=== PATIENT | male | born 1995 | race American Indian/Alaskan Native ===

== ENCOUNTER 2020-08-16 03:02 | Emergency (ER) | payer SELFPAY ==
[2020-08-16] MEDS ORDERED: methylPREDNISolone Sod Succinate 125 MG/2 ML INJ IM ONE (03:23)
[2020-08-16] MEDS ORDERED: IPRATROPIUM/ALBUTEROL SULFATE 3 ML AMPUL.NEB IH ONE (03:23)
--- NOTE | 2020-08-16 03:47 | Emergency Department Report ---
ED General Adult HPI - General Chief complaint: Chest Pain Stated complaint: CHEST PAIN Time Seen by Provider: 08/16/20 03:06 Source: patient Mode of arrival: Ambulatory Limitations: No Limitations - History of Present Illness Initial comments: 25 yo AA M pt presents with complaints of sudden onset of left sided chest tightness x yesterday. Pt states the chest tightness started suddenly when he was at his PCP's office and was informed he that he may have hypertension. PMHx of Asthma per pt. He also states he has had a mild cough, but denies any hem optysis, leg pain/swelling, hx of DVT/PE/cancer, or recent long travel/surgeries. No abdominal pain, N/V/D or fever per pt. He states he has not had an asthma exacerabtion since he was very young and denies any hx of anxiety/panic attacks. Pt denies there being pain in the chest and states it just feels tight; a tightness occurs with deep inhalation and movement of the chest wall per patient only. No prior heart history or family history of heart disease per patient. - Related Data Previous Rx's Medication Instructions Recorded Last Taken Type Naproxen [Naprosyn TAB] 500 mg PO BID PRN #14 tablet 08/16/20 Unknown Rx Allergies Allergy/AdvReac Type Severity Reaction Status Date / Time No Known Allergies Allergy Unverified 08/16/20 03:22 ED Review of Systems ROS: Stated complaint: CHEST PAIN Other details as noted in HPI Constitutional: denies: chills, diaphoresis, fever, malaise, weakness ENT: denies: throat pain Respiratory: cough. denies: shortness of breath, SOB with exertion Cardiovascular: as per HPI. denies: edema, syncope Gastrointestinal: denies: abdominal pain, nausea, vomiting, diarrhea Musculoskeletal: denies: back pain Neurological: denies: headache, weakness ED Past Medical Hx - Past Medical History Previous Medical History?: Yes Hx Hypertension: Yes Hx Asthma: Yes - Surgical History Past Surgical History?: No - Social History Smoking Status: Never Smoker Substance Use Type: None - Medications Home Medications: Home Medications Medication Instructions Recorded Confirmed Last Taken Type Naproxen [Naprosyn TAB] 500 mg PO BID PRN #14 tablet 08/16/20 Unknown Rx ED Physical Exam - General Limitations: No Limitations General appearance: alert, in no apparent distress - Head Head exam: Present: atraumatic, normocephalic - Eye Eye exam: Present: normal appearance. Absent: scleral icterus - ENT ENT exam: Present: normal exam - Neck Neck exam: Present: normal inspection - Respiratory Respiratory exam: Present: chest wall tenderness (left parasternal ). Absent: respiratory distress, wheezes, rales, rhonchi, accessory muscle use - Cardiovascular Cardiovascular Exam: Present: regular rate, normal rhythm - GI/Abdominal GI/Abdominal exam: Present: soft. Absent: tenderness - Extremities Exam Extremities exam: Absent: calf tenderness (No swelling or tenderness noted to legs bilaterally) - Neurological Exam Neurological exam: Present: alert, oriented X3, normal gait - Psychiatric Psychiatric exam: Present: normal affect, normal mood - Skin Skin exam: Present: warm, dry, intact, normal color. Absent: rash ED Course Vital Signs 08/16/20 08/16/20 08/16/20 03:19 03:22 03:39 Temperature 98.8 F Pulse Rate 92 H 95 H Pulse Rate [ 90 Bilateral] Respiratory 18 Rate Respiratory 22 Rate [Bilateral ] Blood Pressure 157/101 Blood Pressure [Left] O2 Sat by Pulse 98 Oximetry 08/16/20 05:10 Temperature Pulse Rate 80 Pulse Rate [ Bilateral] Respiratory 18 Rate Respiratory Rate [Bilateral ] Blood Pressure Blood Pressure 149/102 [Left] O2 Sat by Pulse 99 Oximetry ED Medical Decision Making - EKG Data EKG shows normal: sinus rhythm - EKG Data Interpretation: nonspecific ST-T wave iggy (llikely early repolarization ) - Radiology Data Radiology results: report reviewed XR chest routine 2V INDICATION / CLINICAL INFORMATION: left sided chest tightness. COMPARISON: None available. FINDINGS: SUPPORT DEVICES: None. HEART /PULMONARY VASCULATURE: No significant abnormality. LUNGS / PLEURA: No significant pulmonary or pleural abnormality. No pneumothorax. ADDITIONAL FINDINGS: No significant additional findings. IMPRESSION: 1. No acute findings. - Medical Decision Making 25 yo AA M pt presents with complaints of sudden onset of left sided chest tightness x yesterday. Pt states the chest tightness started suddenly when he was at his PCP's office and was informed he that he may have hypertension. PMHx of Asthma per pt. He also states he has had a mild cough, but denies any hemoptysis, leg pain/swelling, hx of DVT/PE/cancer, or recent long travel/surgeries. No abdominal pain, N/V/D or fever per pt. He states he has not had an asthma exacerabtion since he was very young and denies any hx of anxiety/panic attacks. Pt denies there being pain in the chest and states it just feels tight; tightness seems to worsen with deep inhalation per pt. Tenderness palpation noted of the left parasternal area of the chest wall. Upon further questioning patient admits to recent heavy lifting. He denies any chest wall trauma. Chest x-ray is normal. His vitals are stable. EKG is negative for any acute abnormalities. Will treat for costochondritis with NSAIDs and icing. Recommend follow-up with primary care doctor as scheduled this coming Tuesday. He is well-appearing and stable for discharge home. Discussed signs and symptoms that should prompt immediate return to the emergency department in detail with patient who verbalized understanding. Critical care attestation.: If time is entered above; I have spent that time in minutes in the direct care of this critically ill patient, excluding procedure time. ED Disposition Clinical Impression: Costochondritis, acute Disposition: DC-01 TO HOME OR SELFCARE Is pt being admited?: No Condition: Stable Instructions: Costochondritis Prescriptions: Naproxen [Naprosyn TAB] 500 mg PO BID PRN #14 tablet PRN Reason: pain Referrals: PRIMARY CAREMD [Primary Care Provider] - 08/18/20
[2020-08-16] MEDS ORDERED: NAPROXEN 500 MG TAB PO ONE (04:54)
--- NOTE | 2020-08-16 04:55 | XRay Report ---
XR chest routine 2V INDICATION / CLINICAL INFORMATION: left sided chest tightness. COMPARISON: None available. FINDINGS: SUPPORT DEVICES: None. HEART /PULMONARY VASCULATURE: No significant abnormality. LUNGS / PLEURA: No significant pulmonary or pleural abnormality. No pneumothorax. ADDITIONAL FINDINGS: No significant additional findings. IMPRESSION: 1. No acute findings. Signer Name: Marco Bernal MD Signed: 08/16/2020 4:50 AM Workstation Name: [id number]
[2020-08-16 05:32] VITALS: BP 146/92
== END 2020-08-16 05:36 | disposition home or self-care (01) ==
LOC: ED 03:02
DX: M94.0 Chondrocostal junction syndrome [Tietze] (principal); I10 Essential (primary) hypertension; J45.909 Unspecified asthma, uncomplicated; Z79.899 Other long term (current) drug therapy
CPT/HCPCS: 71046; 93005; 94640; 96372; 99283; J2930; 94644